=== PATIENT | female | born 1995 | race Hispanic/Latino ===

== ENCOUNTER 2017-01-11 03:37 | Emergency (ER) | payer OTHER ==
[2017-01-11] MEDS ORDERED: ONDANSETRON 4MG/2ML VIAL (J2405) As Ordered ONE (05:34)
[2017-01-11 05:39] LABS: BASO % 0.1 % (0.0-1.0); EOS # 0.4 K/mm3 (0.0-0.50); EOS % 2.3 % (0.0-3.0); LARGE UNSTAINED CELL # 0.1 K/mm3 (0.0-0.4); LARGE UNSTAINED CELL % 0.4 % (0.0-4.0); LYMPH # 1.1 K/mm3 (1.5-6.5); LYMPH % 6.3 % (24.0-44.0); MEAN CORPUSCULAR HEMOGLOBIN 31.7 pg (27.0-33.0); MEAN CORPUSCULAR HGB CONC 34.3 g/dl (32.0-36.5); MEAN CORPUSCULAR VOLUME 92.4 fl (80.0-96.0); MONO # 0.5 K/mm3 (0.0-0.8); MONO % 2.8 % (0.0-5.0); NEUTROPHILS # 14.7 K/mm3 (1.8-7.7); PLATELET COUNT, AUTOMATED 296 k/mm3 (150-450); RED CELL DISTRIBUTION WIDTH 12.2 % (11.5-14.5); WHITE BLOOD COUNT 16.7 K/mm3 (4.0-10.0)
[2017-01-11 06:10] LABS: CONTROL LINE HCG INT CTR LINE PRESENT
[2017-01-11 06:19] LABS: ALBUMIN 4.2 GM/DL (3.2-5.2); ALBUMIN/GLOBULIN RATIO 1.11 (1.00-1.93); ALKALINE PHOSPHATASE 155 U/L (45-117); ALT/SGPT 31 U/L (12-78); AMYLASE 65 U/L (25-115); ANION GAP 10 MEQ/L (8-16); AST/SGOT 28 U/L (15-37); BILIRUBIN,DIRECT < 0.1 MG/DL (0.0-0.2); BILIRUBIN,TOTAL 0.3 MG/DL (0.2-1.0); BLOOD UREA NITROGEN 17 MG/DL (7-18); CARBON DIOXIDE LEVEL 26 MEQ/L (21-32); CHLORIDE LEVEL 104 MEQ/L (98-107); CREATININE FOR GFR 0.66 MG/DL (0.55-1.02); GLOMERULAR FILTRATION RATE > 60.0 (>60); GLUCOSE, FASTING 107 MG/DL (70-105); POTASSIUM SERUM 4.2 MEQ/L (3.5-5.1); SODIUM LEVEL 140 MEQ/L (136-145)
--- NOTE | 2017-01-11 07:34 | EDDOCDS ---
Nurse's Notes [facility] Name: Janelle Bose Age: 21 yrs Sex: Female : 1995 Arrival Date: 01/11/2017 Time: 03:37 Bed I3 / M3 Private MD: Diagnosis: Nausea and vomiting;Diarrhea, unspecified Presentation: 01/11 04:13 Presenting complaint: Patient states: nausea vomiting and diarrhea since since 0240 cz this morning here with same complaint. Adult Sepsis Screening: The patient does not have new or worsening altered mentation. Patient's respiratory rate is less than 22. Systolic blood pressure is greater than 100. Patient has a qSOFA score of 0- Negative Sepsis Screen. Suicide/Homicide risk assessment- the patient denies having any suicidal and/or homicidal ideations and does not present with any other emotional, behavioral or mental health complaints. Status: The patient is a dependent. Transition of care: patient was not received from another setting of care. 04:13 Acuity: MERLENE Level 3 cz 04:13 Method Of Arrival: Walkin/Carried/Asstd cz Triage Assessment: 04:18 General: Appears in no apparent distress. Pain: Denies pain. HIV screening NA for this cz visit Offered previously. 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 Vitamin Oral - PMHx: none; - PSHx: none; - Social history: Smoking status: Patient states was never smoker of tobacco. No barriers to communication noted, The patient speaks fluent Czech, Speaks appropriately for age. - Family history: Pertinent for Significant other has/had recent gastrointestinal symptoms. - : The pt / caregiver states he / she is not on anticoagulants. Home medication list is obtained from the patient. - Exposure Risk Screening:: None identified. Screenin:46 Screening information is obtained from the patient. Fall risk: No risks identified. dls Assistance ADL's: requires no assistance with activities of daily living. Abuse/DV Screen: The patient / caregiver reports he/she is: not in a situation that causes fear, pain or injury. Nutritional screening: No deficits noted. Advance Directives: Currently, there is no health care proxy. There is no active DNR order. There is no living will. There is no Power of Floorworker Lasting. Advance directive information has not previously been placed in an [facility] medical record. home support is adequate. Assessment: 05:45 General: Appears uncomfortable, well developed, well nourished, well groomed, Behavior dls is cooperative. Neurological: No deficits noted. EENT: No deficits noted. Cardiovascular: No deficits noted. Respiratory: No deficits noted. GI: Abdomen is non- distended Bowel sounds present X 4 quads. Abd is soft X 4 quads Reports lower abdominal pain, nausea, vomiting. : No deficits noted. Derm: No deficits noted. Musculoskeletal: No deficits noted. Vital Signs: 04:18 BP 107 / 70; Pulse 114; Resp 16; Temp 98.6(TE); Pulse Ox 95% on R/A; Weight 52.16 kg; cz Height 5 ft. 1 in. (154.94 cm); 06:31 BP 98 / 51; Pulse 94; Resp 18; Temp 98.5; Pulse Ox 98% on R/A; Pain 0/10; savita 04:18 Body Mass Index 21.73 (52.16 kg, 154.94 cm) Vitals: 04:18 Log In Time: January 11, 2017 at 03:31. ED Course: 03:39 Patient visited by India Geronimo. gjb 03:39 Patient moved to Waiting gjb 04:17 Triage Initiated cz 04:20 Patient moved to Pre RCE cz 05:08 Patient moved to I3 / M3 dls 05:28 Amylase Sent. rw1 05:28 Basic Metabolic Profile Sent. rw1 05:29 CBC with Diff Sent. rw1 05:29 HCG,Serum Qualitative Sent. rw1 05:29 Lipase Sent. rw1 05:29 Liver Profile Sent. rw1 05:40 Patient visited by Tiffanie Chacko RN. dls 05:46 The patient / caregiver is instructed regarding the plan of care and ED course. dls 05:46 Inserted saline lock: 20 gauge in left antecubital area and blood collected. The dls patient tolerated the procedure well. No procedures done that require assistance. Labs drawn. (by ED staff). 06:29 [facility] Payment Agreement was scanned into [employer] and attached to record. gjb 06:31 Patient visited by Sonia Varela PCA. savita 06:36 Patient name changed from Janelle\S\\S\Bose\S\ to Janelle\S\ \S\Bose. EDMS 06:59 [facility] btw 06:59 Sehng Arroyo DO is Attending Physician. btw 06:59 Patient visited by Robert Garrison PA. btw 07:32 Discontinued IV lock intact, bleeding controlled, pressure dressing applied, No dls redness/swelling at site. Administered Medications: 05:28 Drug: NS 0.9% 1000 ml [sodium chloride 0.9 % intravenous solution] Route: IV; Rate: rw1 bolus; Site: left antecubital; 07:32 Follow up: IV Status: Completed infusion dls 05:39 Drug: Ondansetron 4 mg [ondansetron HCl 2 mg/mL intravenous solution (2 mL)] Route: dls IVP; Site: left antecubital; 07:31 Follow up: Response: Nausea is resolved dls Order Results: Lab Order: Amylase; SPEC'M 01/11/17 05:19 Test: AMYLASE; Value: 65; Range: 25-115; Units: U/L; Status: F Lab Order: Basic Metabolic Profile; SPEC'M 01/11/17 05:19 Test: GLUCOSE, FASTING; Value: 107; Range: 70-105; Abnormal: Above high normal; Units: MG/DL; Status: F Test: BLOOD UREA NITROGEN; Value: 17; Range: 7-18; Units: MG/DL; Status: F Test: CREATININE FOR GFR; Value: 0.66; Range: 0.55-1.02; Units: MG/DL; Status: F Test: SODIUM LEVEL; Range: 136-145; Units: MEQ/L; Status: I Test: POTASSIUM SERUM; Range: 3.5-5.1; Units: MEQ/L; Status: I Test: CHLORIDE LEVEL; Range: 98-107; Units: MEQ/L; Status: I Test: CARBON DIOXIDE LEVEL; Range: 21-32; Units: MEQ/L; Status: I Test: ANION GAP; Range: 8-16; Units: MEQ/L; Status: I Test: CALCIUM LEVEL; Range: 8.5-10.1; Units: MG/DL; Status: I Test: GLOMERULAR FILTRATION RATE; Value: > 60.0; Range: >60; Status: F Test: SODIUM LEVEL; Value: 140; Range: 136-145; Units: MEQ/L; Status: F Test: POTASSIUM SERUM; Value: 4.2; Range: 3.5-5.1; Units: MEQ/L; Status: F Test: CHLORIDE LEVEL; Value: 104; Range: 98-107; Units: MEQ/L; Status: F Test: CARBON DIOXIDE LEVEL; Value: 26; Range: 21-32; Units: MEQ/L; Status: F Test: ANION GAP; Value: 10; Range: 8-16; Units: MEQ/L; Status: F Test: CALCIUM LEVEL; Value: 10.0; Range: 8.5-10.1; Units: MG/DL; Status: F Test Note: ; Units are mL/min/1.73 m2 Chronic Kidney Disease Staging per NKF: Stage I & II GFR >=60 Normal to Mildly Decreased Stage III GFR 30-59 Moderately Decreased Stage IV GFR 15-29 Severely Decreased Stage V GFR <15 Very Little GFR Left ESRD GFR <15 on INFRASTRUCTURE MANAGER Lab Order: CBC with Diff; SPEC'M 01/11/17 05:19 Test: WHITE BLOOD COUNT; Value: 16.7; Range: 4.0-10.0; Abnormal: Above high normal; Units: K/mm3; Status: F Test: RED BLOOD COUNT; Value: 4.65; Range: 4.00-5.40; Units: M/mm3; Status: F Test: HEMOGLOBIN; Value: 14.8; Range: 12.0-16.0; Units: g/dl; Status: F Test: HEMATOCRIT; Value: 43.0; Range: 36.0-47.0; Units: %; Status: F Test: MEAN CORPUSCULAR VOLUME; Value: 92.4; Range: 80.0-96.0; Units: fl; Status: F Test: MEAN CORPUSCULAR HEMOGLOBIN; Value: 31.7; Range: 27.0-33.0; Units: pg; Status: F Test: MEAN CORPUSCULAR HGB CONC; Value: 34.3; Range: 32.0-36.5; Units: g/dl; Status: F Test: RED CELL DISTRIBUTION WIDTH; Value: 12.2; Range: 11.5-14.5; Units: %; Status: F Test: PLATELET COUNT, AUTOMATED; Value: 296; Range: 150-450; Units: k/mm3; Status: F Test: NEUTROPHILS %; Value: 88.0; Range: 36.0-66.0; Abnormal: Above high normal; Units: %; Status: F Test: LYMPH %; Value: 6.3; Range: 24.0-44.0; Abnormal: Below low normal; Units: %; Status: F Test: MONO %; Value: 2.8; Range: 0.0-5.0; Units: %; Status: F Test: EOS %; Value: 2.3; Range: 0.0-3.0; Units: %; Status: F Test: BASO %; Value: 0.1; Range: 0.0-1.0; Units: %; Status: F Test: LARGE UNSTAINED CELL %; Value: 0.4; Range: 0.0-4.0; Units: %; Status: F Test: NEUTROPHILS #; Value: 14.7; Range: 1.8-7.7; Abnormal: Above high normal; Units: K/mm3; Status: F Test: LYMPH #; Value: 1.1; Range: 1.5-6.5; Abnormal: Below low normal; Units: K/mm3; Status: F Test: MONO #; Value: 0.5; Range: 0.0-0.8; Units: K/mm3; Status: F Test: EOS #; Value: 0.4; Range: 0.0-0.50; Units: K/mm3; Status: F Test: BASO #; Value: 0.0; Range: 0.0-0.2; Units: K/mm3; Status: F Test: LARGE UNSTAINED CELL #; Value: 0.1; Range: 0.0-0.4; Units: K/mm3; Status: F Lab Order: HCG,Serum Qualitative; SPEC'M 01/11/17 05:19 Test: HCG, SERUM QUALITATIVE; Value: NEGATIVE; Range: NEGATIVE; Status: F Lab Order: Lipase; SPEC'M 01/11/17 05:19 Test: LIPASE; Value: 104; Range: 73-393; Units: U/L; Status: F Lab Order: Liver Profile; SPEC'M 01/11/17 05:19 Test: AST/SGOT; Value: 28; Range: 15-37; Units: U/L; Status: F Test: ALT/SGPT; Value: 31; Range: 12-78; Units: U/L; Status: F Test: ALKALINE PHOSPHATASE; Value: 155; Range: 45-117; Abnormal: Above high normal; Units: U/L; Status: F Test: BILIRUBIN,TOTAL; Value: 0.3; Range: 0.2-1.0; Units: MG/DL; Status: F Test: BILIRUBIN,DIRECT; Value: < 0.1; Range: 0.0-0.2; Units: MG/DL; Status: F Test: TOTAL PROTEIN; Value: 8.0; Range: 6.4-8.2; Units: GM/DL; Status: F Test: ALBUMIN; Value: 4.2; Range: 3.2-5.2; Units: GM/DL; Status: F Test: ALBUMIN/GLOBULIN RATIO; Value: 1.11; Range: 1.00-1.93; Status: F Outcome: 07:19 Discharge ordered by Provider. btw 07:32 Discharge Assessment: Patient awake, alert and oriented x 3. No cognitive and/or dls functional deficits noted. Patient verbalized understanding of disposition instructions. patient administered narcotics - no. The following High Risk Discharge criteria are identified: None. Discharged to home ambulatory, with family. Condition: stable Condition: improved. Discharge instructions given to patient, Instructed on discharge instructions, follow up and referral plans. medication usage, Demonstrated understanding of instructions, medications, Pt was receptive of discharge instructions/ teaching. Prescriptions given X 1. No special radiology studies were completed. Property sent home with patient. 07:33 Patient left the ED. dls Signatures: Dispatcher [employer] EDTiffanie Archer RN RN dls Zecher, Calvin, RN RN cz Workman, Robert,MARIEL SCRIPT READER rw1 Robert Garrison PA PA btw Sonia Varela PCA PCA dre Beck, Gabriela gjb MTDD
--- NOTE | 2017-01-11 07:34 | EDDOCDS ---
Physician Documentation [facility] Name: Janelle Bose Age: 21 yrs Sex: Female : 1995 Arrival Date: 01/11/2017 Time: 03:37 Bed I3 / M3 Private MD: Disposition: 01/11/17 07:19 Discharged to Home/Self Care. Impression: Nausea and vomiting, Diarrhea, unspecified. - Condition is Stable. - Discharge Instructions: Viral Gastroenteritis, [id number]. - Prescriptions for ZOFRAN ODT 4 mg - dissolve 1 tablet by ORAL route 4 times per day As needed do not chew, do not swallow whole; 10 tablet. - Medication Reconciliation, Local Pharmacy Hours form. - Follow up: Private Physician; When: Call to arrange an appointment; Reason: Further diagnostic work-up, Recheck today's complaints, Continuance of care. - Problem is new. - Symptoms have improved. Historical: - Allergies: Amoxil (itching); - Home Meds: 1. Vitamin Oral - PMHx: none; - PSHx: none; - Social history: Smoking status: Patient states was never smoker of tobacco. No barriers to communication noted, The patient speaks fluent Malagasy, Speaks appropriately for age. - Family history: Pertinent for Significant other has/had recent gastrointestinal symptoms. - : The pt / caregiver states he / she is not on anticoagulants. Home medication list is obtained from the patient. - Exposure Risk Screening:: None identified. 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 1 in. (154.94 cm); 06:31 BP 98 / 51; Pulse 94; Resp 18; Temp 98.5; Pulse Ox 98% on R/A; Pain 0/10; savita 04:18 Body Mass Index 21.73 (52.16 kg, 154.94 cm) cz MDM: 05:14 NS 0.9% 1000 ml IV at bolus once ordered. mm11 05:14 IV Saline Lock ordered. mm11 05:14 Undress patient appropriately for examination ordered. mm11 05:16 Amylase Ordered. EDMS 05:16 Basic Metabolic Profile Ordered. EDMS 05:16 CBC with Diff Ordered. EDMS 05:16 HCG,Serum Qualitative Ordered. EDMS 05:16 Lipase Ordered. EDMS 05:16 Liver Profile Ordered. EDMS 05:16 NOTHING BY MOUTH+DIET ordered. EDMS 05:28 Ondansetron 4 mg IVP once ordered. dls 06:29 [facility] Payment Agreement was scanned into [employer] and attached to record. gjb 07:00 Financial registration complete. pm4 07:19 Basic Metabolic Profile Reviewed. btw 07:19 CBC with Diff Reviewed. btw 07:19 Liver Profile Reviewed. btw 07:19 Amylase Reviewed. btw 07:19 HCG,Serum Qualitative Reviewed. btw 07:19 Lipase Reviewed. btw Administered Medications: 05:28 Drug: NS 0.9% 1000 ml [sodium chloride 0.9 % intravenous solution] Route: IV; Rate: rw1 bolus; Site: left antecubital; 07:32 Follow up: IV Status: Completed infusion dls 05:39 Drug: Ondansetron 4 mg [ondansetron HCl 2 mg/mL intravenous solution (2 mL)] Route: dls IVP; Site: left antecubital; 07:31 Follow up: Response: Nausea is resolved dls Signatures: Dispatcher [employer] Tiffanie Clarke RN RN dls Zecher, Calvin, RN RN cz Maynard, Matthew, DO mm11 Robert Garrison PA PA btw India Geronimo gjb Dell Small, Reg Reg pm4 Piero Yi TECHNOLOGY TRAINER rw1 The chart was reviewed and I authenticate all verbal orders and agree with the evaluation and treatment provided.Attachments: 06:29 [facility] Payment Agreement gjb MTDD
--- NOTE | 2017-01-13 08:34 | EDDOCDS ---
Physician Documentation [facility] Name: Janelle Bose Age: 21 yrs Sex: Female : 1995 Arrival Date: 01/11/2017 Time: 03:37 Bed I3 / M3 Private MD: Disposition: 01/11/17 07:19 Discharged to Home/Self Care. Impression: Nausea and vomiting, Diarrhea, unspecified. - Condition is Stable. - Discharge Instructions: Viral Gastroenteritis, [id number]. - Prescriptions for ZOFRAN ODT 4 mg - dissolve 1 tablet by ORAL route 4 times per day As needed do not chew, do not swallow whole; 10 tablet. - Medication Reconciliation, Local Pharmacy Hours form. - Follow up: Private Physician; When: Call to arrange an appointment; Reason: Further diagnostic work-up, Recheck today's complaints, Continuance of care. - Problem is new. - Symptoms have improved. Historical: - Allergies: Amoxil (itching); - Home Meds: 1. Vitamin Oral - PMHx: none; - PSHx: none; - Social history: Smoking status: Patient states was never smoker of tobacco. No barriers to communication noted, The patient speaks fluent Mongolian, Speaks appropriately for age. - Family history: Pertinent for Significant other has/had recent gastrointestinal symptoms. - : The pt / caregiver states he / she is not on anticoagulants. Home medication list is obtained from the patient. - Exposure Risk Screening:: None identified. 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 1 in. (154.94 cm); 06:31 BP 98 / 51; Pulse 94; Resp 18; Temp 98.5; Pulse Ox 98% on R/A; Pain 0/10; savita 04:18 Body Mass Index 21.73 (52.16 kg, 154.94 cm) cz MDM: 05:14 NS 0.9% 1000 ml IV at bolus once ordered. mm11 05:14 IV Saline Lock ordered. mm11 05:14 Undress patient appropriately for examination ordered. mm11 05:16 Amylase Ordered. EDMS 05:16 Basic Metabolic Profile Ordered. EDMS 05:16 CBC with Diff Ordered. EDMS 05:16 HCG,Serum Qualitative Ordered. EDMS 05:16 Lipase Ordered. EDMS 05:16 Liver Profile Ordered. EDMS 05:16 NOTHING BY MOUTH+DIET ordered. EDMS 05:28 Ondansetron 4 mg IVP once ordered. dls 06:29 [facility] [place] was scanned into [employer] and attached to record. b 07:00 Financial registration complete. pm4 07:19 Basic Metabolic Profile Reviewed. btw 07:19 CBC with Diff Reviewed. btw 07:19 Liver Profile Reviewed. btw 07:19 Amylase Reviewed. btw 07:19 HCG,Serum Qualitative Reviewed. btw 07:19 Lipase Reviewed. btw 22:19 T-Sheet-- Draft Copy was scanned into [employer] and attached to record. klr Administered Medications: 05:28 Drug: NS 0.9% 1000 ml [sodium chloride 0.9 % intravenous solution] Route: IV; Rate: rw1 bolus; Site: left antecubital; 07:32 Follow up: IV Status: Completed infusion dls 05:39 Drug: Ondansetron 4 mg [ondansetron HCl 2 mg/mL intravenous solution (2 mL)] Route: dls IVP; Site: left antecubital; 07:31 Follow up: Response: Nausea is resolved dls Signatures: Dispatcher [employer] Tiffanie Clarke RN RN dls Zecher, Calvin, RN RN cz Maynard, Matthew, DO DO mm11 Robert Garrison PA PA btw [place] Geronimo b Mer Bailon Paul, Reg Reg pm4 Piero Yi LPN rw1 The chart was reviewed and I authenticate all verbal orders and agree with the evaluation and treatment provided.Attachments: 06:29 [facility] Payment Agreement [facility] 22:19 T-Sheet-- Draft Copy klr Chart Complete MTDD
--- NOTE | 2017-01-13 08:34 | EDDOCDS ---
Physician Documentation [facility] Name: Janlele Bose Age: 21 yrs Sex: Female : 1995 Arrival Date: 01/11/2017 Time: 03:37 Bed I3 / M3 Private MD: Disposition: 01/11/17 07:19 Discharged to Home/Self Care. Impression: Nausea and vomiting, Diarrhea, unspecified. - Condition is Stable. - Discharge Instructions: Viral Gastroenteritis, [id number]. - Prescriptions for ZOFRAN ODT 4 mg - dissolve 1 tablet by ORAL route 4 times per day As needed do not chew, do not swallow whole; 10 tablet. - Medication Reconciliation, Local Pharmacy Hours form. - Follow up: Private Physician; When: Call to arrange an appointment; Reason: Further diagnostic work-up, Recheck today's complaints, Continuance of care. - Problem is new. - Symptoms have improved. Historical: - Allergies: Amoxil (itching); - Home Meds: 1. Vitamin Oral - PMHx: none; - PSHx: none; - Social history: Smoking status: Patient states was never smoker of tobacco. No barriers to communication noted, The patient speaks fluent Sammarinese, Speaks appropriately for age. - Family history: Pertinent for Significant other has/had recent gastrointestinal symptoms. - : The pt / caregiver states he / she is not on anticoagulants. Home medication list is obtained from the patient. - Exposure Risk Screening:: None identified. 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 1 in. (154.94 cm); 06:31 BP 98 / 51; Pulse 94; Resp 18; Temp 98.5; Pulse Ox 98% on R/A; Pain 0/10; savita 04:18 Body Mass Index 21.73 (52.16 kg, 154.94 cm) cz MDM: 05:14 NS 0.9% 1000 ml IV at bolus once ordered. mm11 05:14 IV Saline Lock ordered. mm11 05:14 Undress patient appropriately for examination ordered. mm11 05:16 Amylase Ordered. EDMS 05:16 Basic Metabolic Profile Ordered. EDMS 05:16 CBC with Diff Ordered. EDMS 05:16 HCG,Serum Qualitative Ordered. EDMS 05:16 Lipase Ordered. EDMS 05:16 Liver Profile Ordered. EDMS 05:16 NOTHING BY MOUTH+DIET ordered. EDMS 05:28 Ondansetron 4 mg IVP once ordered. dls 06:29 [facility] [place] [facility] Payment Agreement was scanned into [employer] and attached to record. b 07:00 Financial registration complete. pm4 07:19 Basic Metabolic Profile Reviewed. btw 07:19 CBC with Diff Reviewed. btw 07:19 Liver Profile Reviewed. btw 07:19 Amylase Reviewed. btw 07:19 HCG,Serum Qualitative Reviewed. btw 07:19 Lipase Reviewed. btw 22:19 T-Sheet-- Draft Copy was scanned into [employer] and attached to record. klr Administered Medications: 05:28 Drug: NS 0.9% 1000 ml [sodium chloride 0.9 % intravenous solution] Route: IV; Rate: rw1 bolus; Site: left antecubital; 07:32 Follow up: IV Status: Completed infusion dls 05:39 Drug: Ondansetron 4 mg [ondansetron HCl 2 mg/mL intravenous solution (2 mL)] Route: dls IVP; Site: left antecubital; 07:31 Follow up: Response: Nausea is resolved dls Signatures: Dispatcher [employer] Tiffanie Clarke RN RN dls Zecher, Calvin, RN RN cz Maynard, Matthew, DO DO mm11 Robert Garrison PA PA btw India Geronimo b Mer Bailon Paul, Reg Reg pm4 Piero Yi LPN rw1 The chart was reviewed and I authenticate all verbal orders and agree with the evaluation and treatment provided.Attachments: 06:29 [facility] Payment Agreement [facility] 22:19 T-Sheet-- Draft Copy klr Chart Complete MTDD
--- NOTE | 2017-01-13 08:34 | EDDOCDS ---
Nurse's Notes [facility] Name: Janelle Bose Age: 21 yrs Sex: Female : 1995 Arrival Date: 01/11/2017 Time: 03:37 Bed I3 / M3 Private MD: Diagnosis: Nausea and vomiting;Diarrhea, unspecified Presentation: 01/11 04:13 Presenting complaint: Patient states: nausea vomiting and diarrhea since since 0240 cz this morning here with same complaint. Adult Sepsis Screening: The patient does not have new or worsening altered mentation. Patient's respiratory rate is less than 22. Systolic blood pressure is greater than 100. Patient has a qSOFA score of 0- Negative Sepsis Screen. Suicide/Homicide risk assessment- the patient denies having any suicidal and/or homicidal ideations and does not present with any other emotional, behavioral or mental health complaints. Status: The patient is a dependent. Transition of care: patient was not received from another setting of care. 04:13 Acuity: MERLENE Level 3 cz 04:13 Method Of Arrival: Walkin/Carried/Asstd cz Triage Assessment: 04:18 General: Appears in no apparent distress. Pain: Denies pain. HIV screening NA for this cz visit Offered previously. 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 Vitamin Oral - PMHx: none; - PSHx: none; - Social history: Smoking status: Patient states was never smoker of tobacco. No barriers to communication noted, The patient speaks fluent Persian, Speaks appropriately for age. - Family history: Pertinent for Significant other has/had recent gastrointestinal symptoms. - : The pt / caregiver states he / she is not on anticoagulants. Home medication list is obtained from the patient. - Exposure Risk Screening:: None identified. Screenin:46 Screening information is obtained from the patient. Fall risk: No risks identified. dls Assistance ADL's: requires no assistance with activities of daily living. Abuse/DV Screen: The patient / caregiver reports he/she is: not in a situation that causes fear, pain or injury. Nutritional screening: No deficits noted. Advance Directives: Currently, there is no health care proxy. There is no active DNR order. There is no living will. There is no Power of Screedman. Advance directive information has not previously been placed in an [facility] medical record. home support is adequate. Assessment: 05:45 General: Appears uncomfortable, well developed, well nourished, well groomed, Behavior dls is cooperative. Neurological: No deficits noted. EENT: No deficits noted. Cardiovascular: No deficits noted. Respiratory: No deficits noted. GI: Abdomen is non- distended Bowel sounds present X 4 quads. Abd is soft X 4 quads Reports lower abdominal pain, nausea, vomiting. : No deficits noted. Derm: No deficits noted. Musculoskeletal: No deficits noted. Vital Signs: 04:18 BP 107 / 70; Pulse 114; Resp 16; Temp 98.6(TE); Pulse Ox 95% on R/A; Weight 52.16 kg; cz Height 5 ft. 1 in. (154.94 cm); 06:31 BP 98 / 51; Pulse 94; Resp 18; Temp 98.5; Pulse Ox 98% on R/A; Pain 0/10; savita 04:18 Body Mass Index 21.73 (52.16 kg, 154.94 cm) Vitals: 04:18 Log In Time: January 11, 2017 at 03:31. ED Course: 03:39 Patient visited by India Geronimo. gjb 03:39 Patient moved to Waiting gjb 04:17 Triage Initiated cz 04:20 Patient moved to Pre RCE cz 05:08 Patient moved to I3 / M3 dls 05:28 Amylase Sent. rw1 05:28 Basic Metabolic Profile Sent. rw1 05:29 CBC with Diff Sent. rw1 05:29 HCG,Serum Qualitative Sent. rw1 05:29 Lipase Sent. rw1 05:29 Liver Profile Sent. rw1 05:40 Patient visited by Tiffanie Chacko RN. dls 05:46 The patient / caregiver is instructed regarding the plan of care and ED course. dls 05:46 Inserted saline lock: 20 gauge in left antecubital area and blood collected. The dls patient tolerated the procedure well. No procedures done that require assistance. Labs drawn. (by ED staff). 06:29 [facility] Payment Agreement was scanned into [email or web address] and attached to record. gjb 06:31 Patient visited by Sonia Varela PCA. savita 06:36 Patient name changed from Janelle\S\\S\Bose\S\ to Janelle\S\ \S\Bose. EDMS 06:59 [facility]. btw 06:59 Sheng Arroyo DO is Attending Physician. btw 06:59 Patient visited by Robert Garrison PA. btw 07:32 Discontinued IV lock intact, bleeding controlled, pressure dressing applied, No dls redness/swelling at site. 22:19 T-Sheet-- Draft Copy was scanned into [email or web address] and attached to record. klr Administered Medications: 05:28 Drug: NS 0.9% 1000 ml [sodium chloride 0.9 % intravenous solution] Route: IV; Rate: rw1 bolus; Site: left antecubital; 07:32 Follow up: IV Status: Completed infusion dls 05:39 Drug: Ondansetron 4 mg [ondansetron HCl 2 mg/mL intravenous solution (2 mL)] Route: dls IVP; Site: left antecubital; 07:31 Follow up: Response: Nausea is resolved dls Order Results: Lab Order: Amylase; SPEC'M 01/11/17 05:19 Test: AMYLASE; Value: 65; Range: 25-115; Units: U/L; Status: F Lab Order: Basic Metabolic Profile; SPEC'M 01/11/17 05:19 Test: GLUCOSE, FASTING; Value: 107; Range: 70-105; Abnormal: Above high normal; Units: MG/DL; Status: F Test: BLOOD UREA NITROGEN; Value: 17; Range: 7-18; Units: MG/DL; Status: F Test: CREATININE FOR GFR; Value: 0.66; Range: 0.55-1.02; Units: MG/DL; Status: F Test: SODIUM LEVEL; Range: 136-145; Units: MEQ/L; Status: I Test: POTASSIUM SERUM; Range: 3.5-5.1; Units: MEQ/L; Status: I Test: CHLORIDE LEVEL; Range: 98-107; Units: MEQ/L; Status: I Test: CARBON DIOXIDE LEVEL; Range: 21-32; Units: MEQ/L; Status: I Test: ANION GAP; Range: 8-16; Units: MEQ/L; Status: I Test: CALCIUM LEVEL; Range: 8.5-10.1; Units: MG/DL; Status: I Test: GLOMERULAR FILTRATION RATE; Value: > 60.0; Range: >60; Status: F Test: SODIUM LEVEL; Value: 140; Range: 136-145; Units: MEQ/L; Status: F Test: POTASSIUM SERUM; Value: 4.2; Range: 3.5-5.1; Units: MEQ/L; Status: F Test: CHLORIDE LEVEL; Value: 104; Range: 98-107; Units: MEQ/L; Status: F Test: CARBON DIOXIDE LEVEL; Value: 26; Range: 21-32; Units: MEQ/L; Status: F Test: ANION GAP; Value: 10; Range: 8-16; Units: MEQ/L; Status: F Test: CALCIUM LEVEL; Value: 10.0; Range: 8.5-10.1; Units: MG/DL; Status: F Test Note: ; Units are mL/min/1.73 m2 Chronic Kidney Disease Staging per NKF: Stage I & II GFR >=60 Normal to Mildly Decreased Stage III GFR 30-59 Moderately Decreased Stage IV GFR 15-29 Severely Decreased Stage V GFR <15 Very Little GFR Left ESRD GFR <15 on DIET COUNSELOR Lab Order: CBC with Diff; SPEC'M 01/11/17 05:19 Test: WHITE BLOOD COUNT; Value: 16.7; Range: 4.0-10.0; Abnormal: Above high normal; Units: K/mm3; Status: F Test: RED BLOOD COUNT; Value: 4.65; Range: 4.00-5.40; Units: M/mm3; Status: F Test: HEMOGLOBIN; Value: 14.8; Range: 12.0-16.0; Units: g/dl; Status: F Test: HEMATOCRIT; Value: 43.0; Range: 36.0-47.0; Units: %; Status: F Test: MEAN CORPUSCULAR VOLUME; Value: 92.4; Range: 80.0-96.0; Units: fl; Status: F Test: MEAN CORPUSCULAR HEMOGLOBIN; Value: 31.7; Range: 27.0-33.0; Units: pg; Status: F Test: MEAN CORPUSCULAR HGB CONC; Value: 34.3; Range: 32.0-36.5; Units: g/dl; Status: F Test: RED CELL DISTRIBUTION WIDTH; Value: 12.2; Range: 11.5-14.5; Units: %; Status: F Test: PLATELET COUNT, AUTOMATED; Value: 296; Range: 150-450; Units: k/mm3; Status: F Test: NEUTROPHILS %; Value: 88.0; Range: 36.0-66.0; Abnormal: Above high normal; Units: %; Status: F Test: LYMPH %; Value: 6.3; Range: 24.0-44.0; Abnormal: Below low normal; Units: %; Status: F Test: MONO %; Value: 2.8; Range: 0.0-5.0; Units: %; Status: F Test: EOS %; Value: 2.3; Range: 0.0-3.0; Units: %; Status: F Test: BASO %; Value: 0.1; Range: 0.0-1.0; Units: %; Status: F Test: LARGE UNSTAINED CELL %; Value: 0.4; Range: 0.0-4.0; Units: %; Status: F Test: NEUTROPHILS #; Value: 14.7; Range: 1.8-7.7; Abnormal: Above high normal; Units: K/mm3; Status: F Test: LYMPH #; Value: 1.1; Range: 1.5-6.5; Abnormal: Below low normal; Units: K/mm3; Status: F Test: MONO #; Value: 0.5; Range: 0.0-0.8; Units: K/mm3; Status: F Test: EOS #; Value: 0.4; Range: 0.0-0.50; Units: K/mm3; Status: F Test: BASO #; Value: 0.0; Range: 0.0-0.2; Units: K/mm3; Status: F Test: LARGE UNSTAINED CELL #; Value: 0.1; Range: 0.0-0.4; Units: K/mm3; Status: F Lab Order: HCG,Serum Qualitative; SPEC'M 01/11/17 05:19 Test: HCG, SERUM QUALITATIVE; Value: NEGATIVE; Range: NEGATIVE; Status: F Lab Order: Lipase; SPEC'M 01/11/17 05:19 Test: LIPASE; Value: 104; Range: 73-393; Units: U/L; Status: F Lab Order: Liver Profile; SPEC'M 01/11/17 05:19 Test: AST/SGOT; Value: 28; Range: 15-37; Units: U/L; Status: F Test: ALT/SGPT; Value: 31; Range: 12-78; Units: U/L; Status: F Test: ALKALINE PHOSPHATASE; Value: 155; Range: 45-117; Abnormal: Above high normal; Units: U/L; Status: F Test: BILIRUBIN,TOTAL; Value: 0.3; Range: 0.2-1.0; Units: MG/DL; Status: F Test: BILIRUBIN,DIRECT; Value: < 0.1; Range: 0.0-0.2; Units: MG/DL; Status: F Test: TOTAL PROTEIN; Value: 8.0; Range: 6.4-8.2; Units: GM/DL; Status: F Test: ALBUMIN; Value: 4.2; Range: 3.2-5.2; Units: GM/DL; Status: F Test: ALBUMIN/GLOBULIN RATIO; Value: 1.11; Range: 1.00-1.93; Status: F Outcome: 07:19 Discharge ordered by Provider. btw 07:32 Discharge Assessment: Patient awake, alert and oriented x 3. No cognitive and/or dls functional deficits noted. Patient verbalized understanding of disposition instructions. patient administered narcotics - no. The following High Risk Discharge criteria are identified: None. Discharged to home ambulatory, with family. Condition: stable Condition: improved. Discharge instructions given to patient, Instructed on discharge instructions, follow up and referral plans. medication usage, Demonstrated understanding of instructions, medications, Pt was receptive of discharge instructions/ teaching. Prescriptions given X 1. No special radiology studies were completed. Property sent home with patient. 07:33 Patient left the ED. dls Signatures: Dispatcher [employer] EDTiffanie Archer RN RN dls Zecher, Calvin, RN RN cz Workman, Robert, LPN LPN rw1 Robert Garrison PA PA btw Sonia Varela, [place] Mackay Kathie klr Chart Complete MTDD
== END 2017-01-12 07:33 | disposition home or self-care (01) ==
LOC: M ED 03:37
DX: R11.2 Nausea with vomiting, unspecified (principal); R19.7 Diarrhea, unspecified; Z79.899 Other long term (current) drug therapy; Z88.0 Allergy status to penicillin
CPT/HCPCS: 36415; 80048; 80076; 82150; 83690; 84703; 85025; 96361; 96374; 99284; J2405